=== PATIENT | male | born 1980 | race Caucasian/White ===

== ENCOUNTER 2021-08-25 17:34 | Emergency (ER) | payer OTHER, SELFPAY ==
--- NOTE | ~2021-08-25 | XR_ITS ---
EXAMINATION: XR ELBOW, LEFT CLINICAL INFORMATION: Broken needle and antecubital fossa COMPARISON: None TECHNIQUE: Three views of the left elbow. FINDINGS: 2 needle fragments are identified in the left antecubital fossa. Approximately 10 mm in length. 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 No soft tissue gas. XR/XR elbow LT 2V IMPRESSION: 2 needle fragments identified in the left antecubital fossa.
[2021-08-25 17:38] VITALS: BP 140/98; PULSE 90; O2SAT 97
[2021-08-25 17:48] VITALS: BP 140/78; PULSE 93; RESP 17; TEMP 36.9; O2SAT 97; BMI 22.3
--- NOTE | 2021-08-25 18:07 | ED_ITS ---
HPI - Skin/Abscess/Foreign Bdy General Chief complaint: Skin/Abscess/Foreign Body Stated complaint: NEEDLE STICK Time Seen by Provider: 08/25/21 17:41 Source: patient Mode of arrival: ambulatory Limitations: no limitations History of Present Illness HPI narrative: Patient presents to the emergency department for evaluation and possible broken needle in the left antecubital. Reports 3 hours prior to arrival he was injecting heroin when he noticed the needle to break off he tried to grasp it but it sucked in on . He is reporting some pain to this area. Denies having a tetanus vaccine within the past 5 years. Denies numbness or tingling to the arm or hand, denies weakness. Denies chest pain, shortness of breath, fevers, chills Related Data Previous Rx's Medication Instructions Recorded doxycycline hyclate 100 mg capsule 100 mg PO BID 7 Days #14 cap 08/25/21 naloxone 4 mg/actuation nasal 4 mg INTRANASAL Q2M PRN #2 ea 08/25/21 spray (Narcan) Allergies Allergy/AdvReac Type Severity Reaction Status Date / Time haloperidol [From Haldol] Allergy Difficulty Verified 08/25/21 18:16 Breathing seafood Allergy Difficulty Verified 08/25/21 18:16 Breathing Review of Systems Review of Systems: Constitutional: No fever, chills, weakness or fatigue. Skin: No rash or itching. reports possible foreign body, needle in left AC Cardiovascular: No chest pain, chest pressure or chest discomfort. Respiratory: No shortness of breath, cough or sputum production. Gastrointestinal: No anorexia, nausea, vomiting or diarrhea. No abdominal pain Genitourinary: No burning micturition. No urinary frequency or incontinence. Musculoskeletal: No muscle pain, back pain, joint pain or stiffness. Psychiatric: No depression or anxiety. Yes all other systems are reviewed and are negative PMFSH Past Medical History Attestation statement: The following information was validated with the patient. Source: old records reviewed Medical History No known health problems No known health problems Social History Social History Advance Directives: No Advance Directives Information Provided: No Physical Exam Vital Signs: Vital Signs: Last Vital Signs Temp 98.4 F 08/25/21 17:48 Pulse 93 08/25/21 17:48 Resp 17 08/25/21 17:48 BP 140/78 H 08/25/21 17:48 Pulse Ox 97 08/25/21 17:48 BMI result Body Mass Index 22.3 Vital signs have been reviewed as normal and appeared to be correct. Blood pressure normal.? Heart rate normal.? Respiration rate normal. Temperature normal.? Oxygen saturation normal. Appearance: Alert.?Oriented to person, place and time. No acute distress.?Norm al affect. Eyes: Pupils equal, round and reactive to light.? ENT: Pharynx normal.?? Neck: Normal inspection.? Neck supple.?? CVS: Heart sounds normal. Normal heart rate and rhythm.? Pulses normal.? Palpable radial pulse 2 +bilaterally? Respiratory: No respiratory distress.? Lung sounds clear to auscultation bilaterally?? Abdomen: Soft and non-tender. Normoactive bowel sounds. Skin: Skin warm and dry.? Normal skin color.? puncture waller to left an tecubital, no obvious swelling, erythema, or warmth. Extremities: No lower extremity edema.? Neuro: Moves all extremities spontaneously. Sensation intact bilaterally. No focal neuro deficits. Ambulates with normal steady gait. Course Course Course Narrative: patient is a 41-year-old male with a past history of hepatitis-C, substance abuse, homelessness, presenting to the emergency department for evaluation of possible foreign body to the left antecubital, having noted a broken needle while injecting heroin 3 hours prior to arrival. Tetanus updated. X-ray of the left elbow reveals 2 retained foreign bodies. Spoke with Dr. Davis from general surgery who agrees with the following plan to treat patient prophylactically for cellulitis with doxycycline, with referral to General surgery outpatient for removal. Patient denies suicidal homicidal ideations. I asked him to speak to assistant golf coach but patient declines. Patient willing to receive prescription for Narcan. Discussed reasons to return back to the emergency department, all questions were answered, patient agrees with plan of care. MDM - Skin/Abscess/Foreign Bdy Medical Records Attestation: I reviewed the patient's medical records. Imaging Data elbow XR: Radiologist's impression: FINDINGS: 2 needle fragments are identified in the left antecubital fossa. Approximately 10 mm in length. 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 No soft tissue gas.? XR/XR elbow LT 2V IMPRESSION: 2 needle fragments identified in the left antecubital fossa. Discharge Plan Discharge Clinical Impression: Foreign body (FB) in soft tissue Patient Disposition: Home, Self-Care Instructions: Soft Tissue Foreign Body (ED) Additional Instructions: Take entire course of antibiotics as prescribed for 1 week. You will need to follow up with General surgery for future removal of the foreign bodies. Restrain from injecting further into the sites on your arm. return to the emergency department with any new or worsening symptoms or concerns, such as fever, chills, increasing redness, swelling, pain, discharge, numbness or tingling of the arm, weakness of the hand, chest pain, shortness of breath. Prescriptions: New doxycycline hyclate 100 mg capsule 100 mg PO BID 7 Days Qty: 14 0RF naloxone [Narcan] 4 mg/actuation spray,non-aerosol 4 mg intranasal Q2M PRN (Reason: opioid overdose) Qty: 2 0RF Rx Instructions: spray 1 dose into ONE nostril; alternate nostrils w each dose until help arrives Referrals: Chapis Davis MD [Physician] - 5 days Interventions: ED Discharge Assessment Last Done: 08/25/21 19:24 Discharge Date/Time: 08/25/21 19:26
[2021-08-25] MEDS: Diphth,Pertus(ACell),Tet Adult 0.5 ML SYRINGE IM (18:14)
== END 2021-08-25 19:26 | disposition home or self-care (01) ==
LOC: HO.ED 18:44
PROVIDERS: Emergency Provider Internal Medicine
DX: S50.352A Superficial foreign body of left elbow, initial encounter (principal); S50.312A Abrasion of left elbow, initial encounter; X58.XXXA Exposure to other specified factors, initial encounter; Y93.9 Activity, unspecified; Y92.9 Unspecified place or not applicable; Y99.9 Unspecified external cause status; Z59.00 Homelessness unspecified; Z79.899 Other long term (current) drug therapy
CPT/HCPCS: 73070; 90471; 90715; 99283; 99284

== ENCOUNTER 2023-05-21 14:34 | Emergency (ER) | payer MEDICAID, SELFPAY ==
[2023-05-21 14:55] VITALS: BP 124/90; BP 132/92; PULSE 82; RESP 16; TEMP 36.9; O2SAT 97; O2SAT 99; BMI 25.8
--- NOTE | 2023-05-21 15:24 | ED_ITS ---
HPI - General Adult General Chief complaint: ETOH/Substance Use Stated complaint: OPOID WITHDRAWL Time Seen by Provider: 05/21/23 15:15 Source: patient History of Present Illness HPI narrative: 43 years old without significant past medical history, prior opiate use disorder, presents to the emergency room after having abused fentanyl on Suboxone 4 days ago. Patient reports that he has been cleared for a few years but that recently he relapsed. He reports that 4 days ago he bought some pills off the street and some Suboxone which he crashed and inject in his left and right arm. Patient reports that since then he has been nauseous, jittery and weak. Patient however denies shortness of breath, chest pain, abdominal pain, reports nausea but no vomiting. Patient denies use of alcohol or other illicit drugs. Patient has not used any opiates for the past 4 days. Related Data Previous Rx's Medication Instructions Recorded doxycycline hyclate 100 mg capsule 100 mg PO BID 7 days #14 caps 08/25/21 naloxone 4 mg/actuation nasal 4 mg intranasal Q2M PRN opioid 08/25/21 spray (Narcan) overdose #2 ea ondansetron 4 mg disintegrating 4 mg PO Q8H PRN nausea and 05/21/23 tablet vomiting #10 tabs Allergies Allergy/AdvReac Type Severity Reaction Status Date / Time haloperidol [From Haldol] Allergy Difficulty Verified 05/21/23 14:55 Breathing seafood Allergy Difficulty Verified 05/21/23 14:55 Breathing Review of Systems Review of Systems: Yes all other systems are reviewed and are negative PMFSH Past Medical History Onset Date is defined in the Problem List Problems that require an onset date and time if occurred within 24 hrs of arrival to the ED Aortic Dissection and Rupture; Neurologic impairment; Cardiopulmonary Arrest; Endotracheal Intubation; Insertion or Replacement of Mechanical Circulatory Assist Device Medical History No known health problems No known health problems Social History Social History Advance Directives: No Advance Directives Information Provided: No Physical Exam ED Vital Signs: Vital Signs - 24 hr 05/21/23 14:55 Temperature 98.5 F Pulse Rate 82 Respiratory Rate 16 Blood Pressure 124/90 H Pulse Oximetry 99 Oxygen Delivery Method Room Air BMI result Body Mass Index 25.8 General: Alert, Not in Distress Skin: No rash, warm HEENT: Atraumatic, No Exudate or Pharyngeal Erythema Resp: Normal Breath sounds bilaterally Cardio: Regular rate and Rhythm, Normal S1, S2 ABD: Abd soft, non tender, no guarding or rebound. Normal Bowel sounds. : No cva tenderness Neuro: Alert, oriented x4, PERRL Strenght 5/5 on all extremities Sensation is preserved in both lower and upper extremities Index to nose: normal Cranial Nerves II-XII grossly intact No dysarthria, or aphasia No neglet. Visual douglas are normal bilaterally Psych: Cooperative, NO SI Course Reevaluation(s) Reevaluation #1: Tolerating p.o.. Will DC home Time: 16:13 Medical Decision Making Medical Decision Making [facility] Narrative: Patient presented to the emergency room for nausea, generalized weakness. Reports his symptoms started after injected Suboxone. This was 4 days ago. The patient is otherwise stable and normal vital signs. Reports nausea but otherwise is feeling well exam is been unremarkable. At this time I do not think patient requires lab work, we will give him Zofran and p.o. challenge him. I had a lengthy discussion with the patient regarding the risks of injecting opiates, assuming opiates or improperly using Suboxone. Patient understands. At this time the patient is not suicidal or homicidal, he took opiates 4 days ago and I think is out of the window for acute withdrawal. If tolerates p.o. will send home. Admission/Observation Consideration of admission/observation: Escalation of care including admission/observation considered Discharge Plan Discharge Clinical Impression: Opiate misuse Patient Disposition: Home, Self-Care Instructions: Narcotic Use Disorder (ED) Additional Instructions: You were seen in emergency room for symptoms consistent with Suboxone use use. Symptoms should resolve within the next 24-48 hours. For nausea you can take Zofran 4 mg up to 3 times a day prescription was sent to your pharmacy. If you develop a fever you started on 1000 mg up to 4 times a day. Return to the emergency room if your symptoms worsen. We highly recommend against the use of opiate since this may cause life- threatening events Prescriptions: New ondansetron 4 mg tablet,disintegrating 4 mg PO Q8H PRN (Reason: nausea and vomiting) Qty: 10 0RF No Action doxycycline hyclate 100 mg capsule 100 mg PO BID 7 Days Qty: 14 0RF naloxone [Narcan] 4 mg/actuation spray,non-aerosol 4 mg intranasal Q2M PRN (Reason: opioid overdose) Qty: 2 0RF Rx Instructions: spray 1 dose into ONE nostril; alternate nostrils w each dose until help arrives
[2023-05-21 17:04] VITALS: BP 112/72; PULSE 74; RESP 16; O2SAT 99
== END 2023-05-21 17:06 | disposition home or self-care (01) ==
PROVIDERS: Emergency Provider Student in an Organized Health Care Education/Training Program
DX: F11.23 Opioid dependence with withdrawal (principal); R53.1 Weakness
CPT/HCPCS: 99282; 99283

== ENCOUNTER 2023-06-08 21:21 | Emergency (ER) | payer MEDICAID, SELFPAY ==
[2023-06-08 21:32] VITALS: BP 128/70; BP 129/80; PULSE 65; PULSE 81; RESP 16; TEMP 36.7; O2SAT 98; BMI 26.8
--- NOTE | 2023-06-08 21:37 | ECG_ITS ---
Test Reason : chest pain Blood Pressure : / mmHG Vent. Rate : 086 BPM Atrial Rate : 086 BPM P-R Int : 152 ms QRS Dur : 096 ms QT Int : 374 ms P-R-T Axes : 048 -45 008 degrees QTc Int : 447 ms Normal sinus rhythm Left anterior fascicular block Inferior infarct , age undetermined Abnormal ECG No previous ECGs available Referred By: Generic ED Physician Electronically Signed By:JOANNA PEREZ MD
[2023-06-08 22:03] LABS: MANUAL DIFF FLAG NO
[2023-06-08 22:04] LABS: Basophils Percent Auto 0.4 % (0-2); Eosinophils Absolute Auto 0.3 X10*3/uL (0.0-0.4); Eosinophils Percent Auto 3.7 % (0-4); Hematocrit 37.7 % (42.0-52.0); Imm Gran Abs Auto 0.02 X10*3/uL (0.00-0.03); Imm Gran Pct Auto 0.2 % (0.0-0.4); Lymphocytes Absolute Auto 3.1 X10*3/uL (1.2-4.9); Lymphocytes Percent Auto 33.7 % (20-40); Mean Corpuscular HGB Conc 34.5 g/dl (31.0-36.0); Mean Corpuscular Hemoglobin 30.1 pg (27.0-33.0); Mean Corpuscular Volume 87.3 fL (80.0-98.0); Mean Platelet Volume 9.6 fL (9.4-12.4); Monocytes Absolute Auto 0.7 X10*3/uL (0.1-1.2); Monocytes Percent Auto 8.1 % (2-11); Neutrophils Absolute Auto 4.9 x10*3/uL (2.0-8.3); Neutrophils Percent Auto 53.9 % (45-73); Platelet Count 204 X10*3/uL (160-400); Red Blood Count 4.32 X10*6/uL (4.60-5.80); Red Cell Distribution Width 12.5 % (11.0-16.0); White Blood Count 9.1 X10*3/uL (4.8-10.8)
[2023-06-08 22:28] LABS: Alanine Aminotransferase 194 U/L (0-40); Albumin Level 3.7 g/dL (3.5-5.0); Alkaline Phosphatase 58 U/L (39-117); Anion Gap 11 (12-20); Aspartate Amino Transferase 132 U/L (5-37); Bilirubin Total 0.4 mg/dL (0.0-1.0); Blood Urea Nitrogen 15 mg/dL (9-16); Calcium 9.1 mg/dL (8.4-10.2); Carbon Dioxide 28 mmol/L (22-29); Chloride 109 mmol/L (96-108); Creatinine Clr Calc Pharmacy 112.9; Estimated Glomerular Filt Rate > 60; Glucose Random 102 mg/dL (60-115); Potassium 3.5 mmol/L (3.3-5.1); Sodium 144 mmol/L (135-145); Total Protein 6.9 g/dL (6.5-8.0)
[2023-06-08 22:39] LABS: Troponin-I High Sensitivity < 2.7 ng/L (<3.5-35.0)
[2023-06-09 00:26] VITALS: BP 112/73; PULSE 66; RESP 20; O2SAT 96
[2023-06-09] MEDS: 0.9 % Sodium Chloride 1,000 ML 999 ML IV (01:00)
--- NOTE | 2023-06-09 01:54 | ED_ITS ---
HPI - Chest Pain General Chief Complaint: Chest Pain Stated Complaint: took weed 3 hours ago, vomiting since, chest pain Time Seen by Provider: 06/09/23 00:26 Source: patient, RN notes reviewed and old records reviewed Mode of arrival: ambulatory Limitations: no limitations History of Present Illness HPI narrative: 43-year-old male past medical history significant for hepatitis-C presents for evaluation of chest pain, vomiting. He reports that he had chest pain that started this morning when he woke up. He had intermittent episodes of shaking and blurry vision which he thinks may be related to anxiety He also endorses nausea vomiting. The patient reports he smoked marijuana a few hours prior to coming to the hospital. Patient states that he is due to speak with his outpatient clinic for discussions about his anxiety tomorrow. The patient reports he had been referred to a treatment program for his hepatitis in the past but did not follow through and he is interested in restarting this Related Data Previous Rx's Medication Instructions Recorded doxycycline hyclate 100 mg capsule 100 mg PO BID 7 days #14 caps 08/25/21 naloxone 4 mg/actuation nasal 4 mg intranasal Q2M PRN opioid 08/25/21 spray (Narcan) overdose #2 ea ondansetron 4 mg disintegrating 4 mg PO Q8H PRN nausea and 05/21/23 tablet vomiting #10 tabs Allergies Allergy/AdvReac Type Severity Reaction Status Date / Time haloperidol [From Haldol] Allergy Difficulty Verified 06/08/23 21:30 Breathing seafood Allergy Difficulty Verified 06/08/23 21:30 Breathing Review of Systems 2 Constitutional: Constitutional: Denies chills and Denies fever(s) Eyes: Eyes: Reports blurry vision Cardiovascular: Cardiovascular: Reports chest pain, Reports rapid heart rate and Denies dyspnea Respiratory: Respiratory: Denies cough and Denies dyspnea Gastrointestinal: Gastrointestinal: Reports nausea and Reports vomiting Neurologic: Reports seizure-like activity Psychiatric: Psychiatric: Reports anxiety and Denies suicidal ideation [facility] Past Medical History Medical History No known health problems No known health problems Social History Social History Advance Directives: No Advance Directives Information Provided: No Physical Exam 2 Vital Signs: Vital Signs: Last Vital Signs Temp 98.1 F 06/08/23 21:32 Pulse 66 06/09/23 00:26 Resp 20 06/09/23 00:26 BP 112/73 06/09/23 00:26 Pulse Ox 96 06/09/23 00:26 O2 Del Method Room Air 06/09/23 00:26 BMI result Body Mass Index 26.8 Const: General: healthy appearing, comfortable, no acute distress, alert and awake Nutritional Appearance: well nourished Orientation/consciousness: p atient oriented x3 HEENT: Head: Yes normocephalic and Yes atraumatic Eyes: Eyelids: Yes eyelids normal Conjunctivae: conjunctivae normal S clerae: sclerae normal Corneas: corneas normal Pupils: Equal, round and reactive pupils present EOM: EOMs intact bilaterally Neck: Neck: Yes full ROM Resp: Effort & Inspection: normal respiratory effort, able to speak in complete sentences and not labored Neuro: General: patient oriented x3 Cranial nerves: Yes Equal, round and reactive pupils present and Yes Bilaterally intact EOM present Cognition (Neuro): normal cognition Course Reevaluation(s) Reevaluation #1: Patient was being evaluated by PA student when he had an episode of shaking and his eyes rolled back in his head. I went to evaluate the patient immediately and he was awake, alert and oriented. He was not confused and did not seem postictal. He states this has been going on and off frequently for the last 3 weeks. He states ?I think it is a really bad panic attack. He states that he is not here to be evaluated for these episodes but is here for his chest pain and vomiting. He has no history of seizures Time: 01:00 Reevaluation #2: Patient reports feeling better with IV fluids. A UA and tox screen is pending Time: 02:05 Medications Administered Generic Name Dose Route Start Last Admin Trade Name Freq PRN Reason Stop Dose Admin Sodium Chloride 1,000 mls @ 999 mls/hr 06/09/23 01:00 06/09/23 01:53 Ns IV 06/09/23 02:00 Infused .Q1H1M HARISH Infusion Medical Decision Making Medical Decision Making MDM Narrative: 43-year-old male presents for evaluation of chest pain, vomiting. He reports his symptoms started this morning. His EKG is normal sinus rhythm with a left anterior fascicular block. No acute ST segment changes. Patient's labs are significant for a very mild anemia with a hemoglobin 13.0 and hematocrit 37.7 he has no leukocytosis or left shift patient's chloride is slightly high at 109 with an anion gap of 11. His LFTs are slightly elevated with an an AST of 132 and an ALT of 194. This is likely related to the patient's known history of hepatitis-C. His total bilirubin is normal at 0.4 which helps rule out obstructive biliary disease patient's troponin is less than 2.7 despite his symptoms started at 9:00 a.m.. There is no indication to repeat a troponin. Differential Diagnosis Differential Diagnoses: The differential diagnosis associated with the presentation includes Anxiety Substance abuse Viral syndrome Vomiting Hepatitis-C Lab Data MDM Lab Attestation statement: I reviewed the patient's lab results. As above 06/08/23 21:59 06/08/23 21:59 Labs: Lab Results 06/08/23 Range/Units 21:59 WBC 9.1 (4.8-10.8) X10*3/uL RBC 4.32 L (4.60-5.80) X10*6/uL Hgb 13.0 L (14.0-18.0) g/dl Hct 37.7 L (42.0-52.0) % MCV 87.3 (80.0-98.0) fL MCH 30.1 (27.0-33.0) pg MCHC 34.5 (31.0-36.0) g/dl RDW 12.5 (11.0-16.0) % Plt Count 204 (160-400) X10*3/uL MPV 9.6 (9.4-12.4) fL Immature Gran % (Auto) 0.2 (0.0-0.4) % Neut % (Auto) 53.9 (45-73) % Lymph % (Auto) 33.7 (20-40) % [place] % (Auto) 8.1 (2-11) % Eos % (Auto) 3.7 (0-4) % Baso % (Auto) 0.4 (0-2) % Lymph # (Auto) 3.1 (1.2-4.9) X10*3/uL [place] # (Auto) 0.7 (0.1-1.2) X10*3/uL Eos # (Auto) 0.3 (0.0-0.4) X10*3/uL Baso # (Auto) 0.0 (0.0-0.2) X10*3/uL Abs Immat Gran (auto) 0.02 (0.00-0.03) X10*3/uL Absolute Neuts (auto) 4.9 (2.0-8.3) x10*3/uL Absolute Nucleated RBC 0.000 (0.0-0.012) X10*3/uL Nucleated RBC % (auto) 0.0 (0.0-0.2) /100WBC Sodium 144 (135-145) mmol/L Potassium 3.5 (3.3-5.1) mmol/L Chloride 109 H (96-108) mmol/L Carbon Dioxide 28 (22-29) mmol/L Anion Gap 11 L (12-20) BUN 15 (9-16) mg/dL Creatinine 0.88 (0.5-1.4) mg/dL Estim Creat Clear Calc 112.9 Estimated GFR > 60 Random Glucose 102 (60-115) mg/dL Calcium 9.1 (8.4-10.2) mg/dL Total Bilirubin 0.4 (0.0-1.0) mg/dL AST 132 H (5-37) U/L ALT 194 H (0-40) U/L Alkaline Phosphatase 58 (39-117) U/L Troponin I High Sens < 2.7 (<3.5-35.0) ng/L Total Protein 6.9 (6.5-8.0) g/dL Albumin 3.7 (3.5-5.0) g/dL Independent Interpretation I performed an independent interpretation of an: EKG (As above) Discharge Plan Discharge Clinical Impression: Chest pain, Vomiting Patient Disposition: Home, Self-Care Instructions: Chest Pain (ED), Acute Nausea and Vomiting (ED) Additional Instructions: Your workup in the ER today was reassuring. This includes her blood work, urine sample and EKG Follow-up with your primary doctor You may follow-up with GI as number provided regarding your hepatitis-C diagnosis Prescriptions: No Action doxycycline hyclate 100 mg capsule 100 mg PO BID 7 Days Qty: 14 0RF naloxone [Narcan] 4 mg/actuation spray,non-aerosol 4 mg intranasal Q2M PRN (Reason: opioid overdose) Qty: 2 0RF Rx Instructions: spray 1 dose into ONE nostril; alternate nostrils w each dose until help arrives ondansetron 4 mg tablet,disintegrating 4 mg PO Q8H PRN (Reason: nausea and vomiting) Qty: 10 0RF Referrals: Bonnie Mehta MD [Physician] - (Hepatitis C)
[2023-06-09 01:58] VITALS: BP 111/62
[2023-06-09 02:00] VITALS: BP 106/65; PULSE 65; RESP 14; O2SAT 95
[2023-06-09 02:04] LABS: Appearance Urine Clear; Color Urine Dark Yellow; Glucose Urine UA Negative (Negative); Leukocyte Esterase Urine Negative (Negative); Nitrite Urine Negative (Negative); PH 5.5 (5.0-9.0); Specific Gravity - Urine >= 1.030 (1.005-1.025); Urine Blood Negative (Negative); Urine Ketones Negative (Negative); Urine Protein Trace mg/dL (Neg-Trace)
[2023-06-09 02:09] LABS: Bacteria Urine None Seen (None Seen); RBC Urine 0-2 /HPF (0-2); Squamous Epithelial Cell Urine 0-2 /HPF (0-2); WBC Urine 0-5 /HPF (0-5)
[2023-06-09 02:10] LABS: Amphetamine Screen Urine Not Detected (Not Detect); Barbiturates, Urine Not Detected (Not Detect); Benzodiazepines Screen Urine Not Detected (Not Detect); Cannabinoid Screen Urine POSITIVE (Not Detect); Cocaine Screen Urine Not Detected (Not Detect); Fentanyl, urine POSITIVE (Not Detect); Opiate Screen Urine Not Detected (Not Detect); Phencyclidine Screen Urine Not Detected (Not Detect)
== END 2023-06-09 02:51 | disposition home or self-care (01) ==
PROVIDERS: Physician Assistant; Emergency Provider Emergency Medicine Emergency Medical Services
DX: R07.9 Chest pain, unspecified (principal); R11.2 Nausea with vomiting, unspecified; F41.9 Anxiety disorder, unspecified; B19.20 Unspecified viral hepatitis C without hepatic coma; F19.10 Other psychoactive substance abuse, uncomplicated; Z79.899 Other long term (current) drug therapy
CPT/HCPCS: 36415; 80053; 80307; 81001; 84484; 85025; 93005; 96360; 99284; 99285

== ENCOUNTER → 2023-06-08 21:37 | Outpatient (BNV) | payer MEDICAID, SELFPAY | PROVIDERS: Emergency Provider Emergency Medicine Emergency Medical Services; Visit Provider Internal Medicine Cardiovascular Disease | DX: R94.31 Abnormal electrocardiogram [ECG] [EKG] (principal); I44.4 Left anterior fascicular block | CPT/HCPCS: 93010 ==